=== PATIENT | female | born 1975 | race Caucasian/White ===

== ENCOUNTER 2021-03-06 10:03 | Emergency (ER) | payer OTHER, SELFPAY ==
[2021-03-06 10:20] VITALS: BP 152/78; PULSE 73; RESP 16; TEMP 36.6; O2SAT 100
--- NOTE | 2021-03-06 10:28 | ED.FEMALEGU ---
HPI - Female Genitourinary General Chief complaint: Urogenital-Female Stated complaint: pos uti Source: patient Mode of arrival: ambulatory Limitations: no limitations History of Present Illness HPI Narrative: Patient is a 45-year-old female who presents complaining of urinary frequency, urgency and pressure. She denies dysuria at this time. Patient reports a history of UTIs, last UTI 09/2020. She denies fever, nausea, vomiting or diarrhea. She denies all other complaints at this time. MD elicited complaint: UTI Related Data Allergies Allergy/AdvReac Type Severity Reaction Status Date / Time Sulfa (Sulfonamide Allergy Intermediate Rash Verified 10/07/20 09:43 Antibiotics) Review of Systems Review of Systems: Narrative: CONSTITUTIONAL: Denies fever, chills, or sweats. EYES: Denies visual changes, redness, or discharge. ENT: Denies rhinorrhea, congestion, sore throat, or otalgia. CARDIOVASCULAR: Denies chest pain, palpitations, or edema. RESPIRATORY: Denies cough or dyspnea. GASTROINTESTINAL: Denies abdominal pain, nausea, vomiting, or diarrhea. GENITOURINARY: Reports frequency, urgency and pressure SKIN: Denies rash or itching. MUSCULOSKELETAL: Denies back pain, joint pain, or myalgia. NEUROLOGIC: Denies headache, numbness, dizziness, or weakness. PSYCHIATRIC: Denies anxiety or depression. [facility] Past Medical History Medical History Anxiety and depression BMI 30.0-30.9,adult Migraine Overweight (BMI 25.0-29.9) Screening for lipid disorders Surgical History Surgical History History of hysterectomy Hx of tonsillectomy Family History Family History Father Diabetes mellitus Alcohol abuse Liver cirrhosis Mother Heart disease Diabetes mellitus Kidney failure Hypertension Sibling Diabetes mellitus Hypertension Alcohol abuse Other Breast cancer Social History Social History (Updated 03/06/21 @ 10:30 by POLY Hilton) Smoking status: Never smoker Alcohol intake: current Alcohol use details: Occasional Substance use: never Living arrangements: with family Occupation/Education: occupation Gender identity (if verbalized by the patient): Female Exam Narrative: Exam Narrative: GENERAL: Well-appearing, well-nourished, and in no acute distress. HEAD: Normocephalic, atraumatic. EYES: EOMI. No redness or drainage. Conjunctiva are normal. ENT: Mucous membranes pink and moist. CHEST: No respiratory distress. HEART: Regular rate and rhythm. GI/: Soft, nontender without rebound, or guarding. No CVA tenderness EXTREMITIES: Normal range of motion. No edema. SKIN: Warm, dry, no rash. NEURO: No focal deficits. Alert and oriented x3. Gait steady. PSYCH: Normal affect. No signs of depression or anxiety. Course Vital Signs Vital signs: Vital Signs Temperature 36.6 C 03/06/21 10:20 Pulse Rate 73 03/06/21 10:20 Respiratory Rate 16 03/06/21 10:20 Blood Pressure 152/78 H 03/06/21 10:20 Pulse Oximetry 100 03/06/21 10:20 Temperature 36.6 C 03/06/21 10:20 Pulse Rate 73 03/06/21 10:20 Respiratory Rate 16 03/06/21 10:20 Blood Pressure 152/78 H 03/06/21 10:20 Pulse Oximetry 100 03/06/21 10:20 Reviewed MDM - Female Genitourinary MDM Narrative Medical decision making narrative: Patient's urine displays nitrates, patient is symptomatic and will be treated for UTI at this time. Prescription for nitrofurantoin called in. Patient is stable for discharge home with outpatient follow-up as needed. Differential Diagnosis Differential diagnosis: Likely urinary tract infection, trichomoniasis, vaginitis and cystitis Medical Records Attestation: I reviewed the patient's medical records. Lab Data Labs: Urine Glucose Trace
== END 2021-03-06 10:32 | disposition home or self-care (01) ==
PROVIDERS: Emergency Provider Nurse Practitioner; PCP Family Medicine
DX: N39.0 Urinary tract infection, site not specified (principal); E66.3 Overweight; Z68.29 Body mass index [BMI] 29.0-29.9, adult
CPT/HCPCS: 81003; 87077; 87086; 87088; 87186; 99213; G0463

== ENCOUNTER 2021-11-08 14:52 | Emergency (ER) | payer OTHER, SELFPAY ==
--- NOTE | 2021-11-08 14:55 | ED.URI ---
HPI - URI/Sore Throat General Chief Complaint: Upper Respiratory Infection Stated Complaint: Upset stomach, fever, cough, sore throat Time Seen by Provider: 11/08/21 14:56 Source: patient and RN notes reviewed History of Present Illness HPI Narrative: Patient is a 46-year-old female who presents the urgent care with complaints of fever, cough, sore throat and nausea. Patient states her symptoms started last and she has had positive Covid exposures. Patient states she is been using Mucinex, Tylenol/ibuprofen. Patient has not been Covid vaccinated. Denies any shortness of breath or chest pain currently. No other acute complaints. No acute distress noted. Patient aware of the plan of care. Some parts of this dictation were generated by voice recognition software and may contain typographical and/or grammatical inaccuracies. Related Data Allergies Allergy/AdvReac Type Severity Reaction Status Date / Time Sulfa (Sulfonamide Allergy Intermediate Rash Verified 08/13/21 09:00 Antibiotics) Review of Systems Review of Systems: CONSTITUTIONAL: Reports of fever, chills, sweats EYES: Denies visual changes, redness, or discharge. ENT: Reports of sore throat, rhinorrhea and congestion CARDIOVASCULAR: Denies chest pain, palpitations, or edema. RESPIRATORY: Reports of cough without dyspnea GASTROINTESTINAL: Denies abdominal pain, nausea, vomiting, or diarrhea. GENITOURINARY: Denies dysuria or hematuria. SKIN: Denies rash or itching. MUSCULOSKELETAL: Denies back pain, joint pain, or myalgia. NEUROLOGIC: Denies headache, numbness, or weakness. All other systems reviewed are negative, except as documented in HPI. [facility] Past Medical History Medical History Anxiety and depression BMI 28.0-28.9,adult BMI 29.0-29.9,adult BMI 30.0-30.9,adult Migraine Overweight (BMI 25.0-29.9) Screening for lipid disorders Surgical History Surgical History History of hysterectomy Hx of tonsillectomy Family History Family History Father Diabetes mellitus Alcohol abuse Liver cirrhosis Mother Heart disease Diabetes mellitus Kidney failure Hypertension Sibling Diabetes mellitus Hypertension Alcohol abuse Other Breast cancer Social History Social History Second hand tobacco smoke exposure: Yes Alcohol intake: current Alcohol use details: Occasional Substance use: never Substance use type: does not use Additional occupation/education comments: [employer] Gender identity (if verbalized by the patient): Female Comments At the time of my signature, I reviewed and agree with the nursing past medical, surgical, social, and family history. There is no relevant family history pertinent to the patient complaint. Exam Narrative: GENERAL: This is a well-nourished, well-developed patient, in no apparent distress. Appears fatigued HEAD: normocephalic, atraumatic. EYES: PERRL. Sclera clear/white. Vision is grossly intact. EARS: External ears normal, auditory canals clear and without drainage, TMs normal without perforation. Hearing grossly intact. NOSE: External nose normal with no obvious nasal discharge, nares without redness, no rhinorrhea. THROAT: Mucous membranes moist. Moderate erythema to the posterior oropharynx with moderate postnasal drainage NECK: Neck supple, non-tender without lymphadenopathy CARDIOVASCULAR: Regular rate and rhythm without murmurs, gallops, or rubs. RESPIRATORY: Slight crackles to right lower lobe. Otherwise clear throughout SKIN: Slightly flushed. Warm, intact with no suspicious lesions or rash, good texture and turgor. NEURO: awake, alert, and oriented to person, place and time. There were no obvious focal neurologic abnormalities.
[2021-11-08 15:10] VITALS: BP 132/92; PULSE 105; RESP 16; TEMP 36.4; O2SAT 100
== END 2021-11-08 15:22 | disposition home or self-care (01) ==
PROVIDERS: Emergency Provider Nurse Practitioner Family; PCP Family Medicine
DX: U07.1 COVID-19 (principal)
CPT/HCPCS: 87426; 87804; 99213; C9803; G0463

== ENCOUNTER 2022-05-13 03:07 | Observation (INO) | payer OTHER, SELFPAY ==
[2022-05-13] VITALS (30 sets, daily range): BP systolic 100–152; BP diastolic 59–96; PULSE 87–143; RESP 13–29; TEMP 36–39.1; O2SAT 91–98; BMI 32.2
--- NOTE | 2022-05-13 | ECHO_ITS ---
Patient Info Name: Kathie Siddiqui Age: 46 years : 1975 Gender: Female Ht: 63 in Wt: 182 lbs BSA: 1.95 m2 HR: 88 bpm BP: 131 / 71 mmHg Technical Quality: Good Exam Date: 05/13/2022 1:10 PM Exam Location: [facility] Pulmonary Patient Status: Outpatient Admit Date: 05/13/2022 Staff Ordering Physician: Sammie Singer PA-C Applied Technologist: Mellissa Olvera RDCS Attending Provider: Sammie Singer PA-C Referring Physician: Enmanuel DALY; Exam Type: CA echo doppler color flow Study Info Indications - PE Complete two-dimensional, color flow and Doppler transthoracic echocardiogram is performed. Summary 1. Complete two-dimensional, color flow and Doppler transthoracic echocardiogram is performed. 2. Left ventricular chamber dimension is normal. 3. Left ventricular systolic function is normal, estimated at 60-65%. 4. The left ventricular diastolic function is normal. 5. E/e' 7 is not elevated. 6. Global longitudinal strain is normal at -17.0%. 7. No pulmonary hypertension, estimated pulmonary arterial systolic pressure is 25 mmHg. 8. There is trivial pericardial effusion. Left Ventricle E/e' 7 is not elevated. Global longitudinal strain is normal at -17.0%. Left ventricular chamber dimension is normal. Left ventricular systolic function is normal, estimated at 60-65%. The left ventricular diastolic function is normal. Right Ventricle Right ventricular systolic function is normal and with normal TAPSE 1.7 cm. Right ventricular chamber dimension is normal. Left Atria Left atrial chamber dimension is normal. Right Atria Right atrial chamber dimension is normal. Aortic Valve The aortic valve is trileaflet. There is no aortic valve stenosis. There is no aortic valve regurgitation. Pulmonic Valve There is trace pulmonic regurgitation. Mitral Valve There is no mitral valve stenosis. There is no mitral valve regurgitation. Tricuspid Valve There is no tricuspid valve regurgitation. No pulmonary hypertension, estimated pulmonary arterial systolic pressure is 25 mmHg. Pericardium/Pleural There is trivial pericardial effusion. Inferior Vena Cava Normal inferior vena cava with >50% collapse upon inspiration consistent with normal right atrial pressure, 5 mmHg. Aorta The aortic root size at the sinus of Valsalva is normal. Left Ventricular Outflow Tract Name Value Normal LVOT 2D LVOT Diameter 2.0 cm LVOT Doppler LVOT Peak Gradient 5 mmHg LVOT Mean Gradient 3 mmHg LVOT VTI 19 cm LVOT VTI/AV VTI Ratio 0.8 LVOT Stroke Volume 59 ml LVOT CO 5.3 l/min LVOT CI 2.7 l/min/m2 Pulmonic Valve Name Value Normal RVOT Doppler
--- NOTE | ~2022-05-13 | CT_ITS ---
EXAMINATION: CT chest abdomen pelvis wo con DATE: 05/13/2022 17:44 INDICATION: Upper extremity blood pressure discrepancy TECHNIQUE: Computed tomography (CT) of the chest, abdomen, and pelvis was performed without intraveno us contrast. Automated exposure control and iterative reconstruction technique were employed. Exam do se: 685.44 mGy-cm total exam DLP. COMPARISON: 05/13/2022 CTA chest 03/01/2019 CT abdomen pelvis FINDINGS: CHEST CT: The lungs are clear of infiltrate or consolidation or mass lesion. Normal heart size. No pericardial or pleural effusion. No thoracic aortic aneurysm. No hilar or mediastinal mass lesion or lymphadenopathy. ABDOMEN/PELVIS CT: The liver, spleen, pancreas, adrenal glands are unremarkable on this limited noncontrast examination. The gallbladder is present. No pericholecystic fat stranding or fluid. No bile duct or pancreatic du ct dilatation. No renal mass lesion is evident. Approximately 3.4 x 5 mm nonobstructing right renal calculus. No oth er urinary tract calculus or hydroureteronephrosis. The urinary bladder is relatively evacuated, unremarkable. Status post hysterectomy. Normal caliber of the abdominal aorta. No intraperitoneal or retroperitoneal or pelvic mass lesion or adenopathy or ascites. Minimal diverticulosis of the descending colon. No CT evidence of diverticulitis. No bowel dilatation or any significant bowel wall thickening or any pneumatosis or intraperitoneal free air is noted. Small fat-containing umbilical hernia. There is mild subcutaneous emphysema of the left lower anterio r abdominal wall likely related to subcutaneous injection. No suspicious osteolytic or osteoblastic lesions are noted. IMPRESSION: C5 millimeter nonobstructing right renal calculus Status post hysterectomy Minimal diverticulosis of the descending colon Reviewed, dictated and finalized at [facility]. Reviewed, dictated and finalized at location [facility].
--- NOTE | ~2022-05-13 | XR_ITS ---
EXAMINATION: XR chest 1V portable INDICATION: Shortness of breath and COVID 19 TECHNIQUE: Portable AP chest at 0339 hours COMPARISON: 08/07/2016 FINDINGS: The lungs are free of acute opacities. No pleural effusion or pneumothorax. The cardiomedia stinal silhouette is normal. The visualized bones and soft tissues are unremarkable. IMPRESSION: 1. No acute cardiopulmonary abnormality. Reviewed, dictated and finalized at location [facility].
--- NOTE | ~2022-05-13 | CT_ITS ---
EXAMINATION: CT BRAIN W/O DATE: 05/13/2022 07:46 INDICATION: Headache TECHNIQUE: Computed tomography (CT) of the head was performed without intravenous contrast. The dose- length product was 605.33 mGy-cm. Automated exposure control and iterative reconstruction technique w ere employed. COMPARISON: No prior studies for comparison. FINDINGS: Normal brain parenchymal volume for age. Normal marshall-white differentiation. No acute intrac ranial hemorrhage, infarction, mass or mass effect. No ventriculomegaly or midline shift. Midline sagittal images demonstrate a normal corpus callosum, c raniovertebral junction and sella turcica. Basilar cisterns are patent. Paranasal sinuses and mastoids are pneumatized. No depressed skull fractures. IMPRESSION: 1. No acute intracranial abnormality. Reviewed, dictated and finalized at location L.
--- NOTE | ~2022-05-13 | US_ITS ---
EXAMINATION:US venous doppler LE BI INDICATION:Elevated d-dimer TECHNIQUE: Multiple grayscale, color flow and Doppler images of the right and left lower extremity de ep venous systems were obtained and reviewed. COMPARISON:No prior studies for comparison. FINDINGS: The common femoral, superficial femoral and popliteal veins demonstrate normal respiratory variation, augmentation and compressibility. Color flow is also seen within the posterior tibial, pe roneal, greater saphenous and profunda veins. IMPRESSION: 1: No lower extremity deep venous thrombosis. Reviewed, dictated and finalized at location A.
--- NOTE | ~2022-05-13 | CT_ITS ---
EXAMINATION: CTA chest PE protocol DATE: 05/13/2022 05:26 INDICATION: Shortness of breath and COVID TECHNIQUE: Computed tomography (CT) pulmonary angiogram of the chest was performed with 100 mL Omnipa que-350 intravenous contrast. Additional 3D reconstructions utilizing coronal maximum intensity proje ction (MIP) were performed. Automated exposure control and iterative reconstruction technique were em ployed. The dose-length product was 241.76 mGy-cm. COMPARISON: 08/07/2016 FINDINGS: Good but suboptimal contrast opacification of the pulmonary arteries with the peak of the bolus havin g passed into the aorta. In addition there is mild streak and scattered respiratory motion artifact. This mildly mildly decreases sensitivity and specificity particularly in some of the smaller subsegme ntal pulmonary arteries. There appears be a single small pulmonary arterial filling defect in the pos terior basilar segmental pulmonary artery of the left lower lobe. No other pulmonary emboli identifie d. No pneumonia, pulmonary edema, pleural effusion or pneumothorax. Heart size is normal. No pericard ial effusion. No pathologically enlarged thoracic lymphadenopathy. Visualized upper abdomen and bones are unremarkable. IMPRESSION: 1. Single likely pulmonary embolism in the posterior basilar segmental pulmonary artery of the left l ower lobe with sensitivity and specificity mildly decreased by suboptimal contrast opacification and some streak and motion artifact. Reviewed, dictated and finalized at location A. IMPRESSION: 1. Single likely pulmonary embolism in the posterior basilar segmental pulmonar y artery of the left lower lobe with sensitivity and specificity mildly decreas ed by suboptimal contrast opacification and some streak and motion artifact.
--- NOTE | 2022-05-13 03:34 | ECG_ITS ---
Measurements Intervals [place] Rate: 113 P: 41 NM: 146 QRS: 40 QRSD: 85 T: 66 QT: 343 QTc: 472 Interpretive Statements SINUS TACHYCARDIA NONSPECIFIC ST & T-WAVE ABNORMALITY- DIFFUSE LEADS BASELINE WANDER- III, V2 ABNORMAL ECG Electronically Signed On 05-13-2022 6:36:39 CDT by Mendez Freeman D.O.
[2022-05-13 03:56] LABS: Basophils Percent Auto 0.2 % (0.2-1.2); Hematocrit 42.2 % (37.0-47.0); Immature Granulocyte Absolute 0.05 K/mm3 (0.00-0.031); Immature Granulocyte Percent A 0.5 % (0-0.5); Lymphocytes Absolute Auto 0.92 K/mm3 (0.9-3.2); Lymphocytes Percent Auto 9.7 % (18.3-44.2); Mean Corpuscular HGB Conc 33.2 g/dl (32-36); Mean Corpuscular Volume 90.6 fl (80-100); Mean Platelet Volume 8.7 fl (7.4-10.4); Monocytes Absolute Auto 0.6 K/mm3 (0.1-0.6); Monocytes Percent Auto 5.9 % (2.6-8.5); Neutrophils Absolute Auto 7.9 K/mm3 (1.3-6.7); Neutrophils Percent Auto 83.7 % (45.5-73.1); Platelet Count Result 253 k/mm3 (150-375); Red Blood Count 4.66 M/mm3 (4.2-5.4); Red Cell Distribution Width 13.1 % (11.5-14.5); White Blood Count 9.4 K/mm3 (4.5-10.0)
[2022-05-13 04:06] LABS: Alanine Aminotransferase 32 U/L (6-35); Albumin Level 4.6 g/dL (3.5-5.1); Alkaline Phosphatase 101 U/L (38-126); Anion Gap 10 mmol/L (8-16); Aspartate Amino Transferase 29 U/L (14-36); Bilirubin,Total 0.6 mg/dL (0.2-1.3); Blood Urea Nitrogen 14 mg/dL (7-17); Calcium 9.1 mg/dL (8.4-10.2); Carbon Dioxide 21 mmol/L (22-30); Chloride 103 mmol/L (98-107); Estimated CRCL calculation 85 ml/min; Estimated Glomerular Filt Rate > 60; Glucose 161 mg/dL (65-110); Lactate Dehydrogenase 437 U/L (313-618); Lipase 36 U/L (23-300); Potassium 3.8 mmol/L (3.4-5.0); Sodium 134 mmol/L (137-145)
[2022-05-13 04:10] LABS: D Dimer 0.71 ug/mL (<0.48)
--- NOTE | 2022-05-13 04:10 | ED.GENADULT ---
HPI - General Adult General Chief complaint: Upper Respiratory Infection Stated complaint: covid + yesterday, n/v, headache Time Seen by Provider: 05/13/22 03:27 Source: RN notes reviewed History of Present Illness HPI narrative: Patient presents emergency department from home for COVID-19. Patient states that symptoms began yesterday and she took a home COVID test that was positive states that she has been having a fever as well as persistent nausea and vomiting all day today. States she also has been associated headache and rhinorrhea she states she has been having a cough this been nonproductive does feel mildly short of breath she denies any chest pain diarrhea or any other symptoms states she is not taking medication today she has not been able to keep anything down patient states she did not receive the COVID-19 vaccination Related Data Allergies Allergy/AdvReac Type Severity Reaction Status Date / Time Sulfa (Sulfonamide Allergy Intermediate Rash Verified 05/13/22 10:44 Antibiotics) Review of Systems Review of Systems: Gen.: Reports fever Eyes: Denies eye pain or visual change ENT: Reports nasal congestion Respiratory: See HPI CV: Denies chest pain or palpitations GI: Reports diffuse abdominal pain nausea vomiting denies diarrhea Musculoskeletal: Denies back pain or muscle pain Neuro: Reports headache Skin: Denies rash Except as documented, all other systems reviewed and negative [facility] Past Medical History Medical History (Updated 05/13/22 @ 09:34 by Sammie Singer PA-C) Anxiety and depression Kidney stone Migraine Screening for lipid disorders Surgical History Surgical History (Updated 05/13/22 @ 09:34 by Sammie Singer PA-C) History of exploratory laparotomy Fallopian tube blood clot History of hysterectomy Hx of tonsillectomy Family History Family History Father Diabetes mellitus Alcohol abuse Liver cirrhosis Mother Heart disease Diabetes mellitus Kidney failure Hypertension Sarcoidosis Sibling Diabetes mellitus Hypertension Alcohol abuse Other Breast cancer Social History Social History (Updated 05/13/22 @ 09:44 by Sammie Singer PA-C) Social History: Ms. Siddiqui lives at home with her . She works at [employer]. Her PCP is Dr. Bernard. She designates her , Marcin, as her surrogate decision maker. She would like to be a DNR. Smoking status: Never smoker Alcohol intake: never Alcohol use details: 2 drinks/month Substance use: never Substance use type: does not use Living arrangements: with family Gender identity (if verbalized by the patient): Female Spiritual care concerns: No Exam Narrative: APPEARANCE: No acute distress, nontoxic, resting in bed EYES: EOMI HEENT: Normocephalic, atraumatic, OMM RESPIRATORY: No respiratory distress Clear to auscultation bilaterally with no rhonchi wheezing or rales. CARDIOVASCULAR: Regular rate and rhythm without murmurs rubs or gallops. ABDOMINAL: Soft, nontender, nondistended, no rebound or guarding MUSCULOSKELETAl: Moves all extremities. No clubbing, cyanosis or edema. NEURO: Awake and alert. Following commands, speech normal, no focal deficits SKIN:: Warm, dry. No rashes lesions or abrasions PSYCHIATRIC: Normal affect/mood, Course Course Emergency Course: Discussed with patient results of CT scan states she does have a history of approximate 25 years ago having a blood clot following the of her son Discussed with Dr Martin presentation work-up agrees with admission at this time request influenza swab be obtained Discussed with patient and family results of workup and diagnosis. Discussed need for admission. Patient and family understand and agree to current treatment plan Vital Signs Vital signs: Vital Signs Temperature 100.4 F H 05/13/22 03:11 Pulse Rate 143 H 05/13/22 03:11 Respiratory Rate 20 0
[2022-05-13 04:18] LABS: Troponin I < 0.012 ng/mL (0.000-0.034)
[2022-05-13] MEDS: ONDANSETRON INJ 4 MG/2 ML VIAL IV PUSH ×3 (04:26→21:57)
[2022-05-13] MEDS: FAMOTIDINE 20 MG/2 ML VIAL IV PUSH (04:27)
[2022-05-13] MEDS: SODIUM CHLORIDE 0.9% IV 1,000 ML 999 ML IV CONT ×2 (04:31→06:25)
[2022-05-13 06:03] LABS: SARS-CoV-2 RNA PCR Positive
[2022-05-13 07:45] LABS: INR 1.2; Partial Thromboplastin Time 32.3 SECONDS (22.3-36.8)
[2022-05-13 08:03] LABS: Appearance Urine Clear (Clear); Bilirubin Urine Negative (Negative); Color Urine Yellow (Yellow); Glucose Urine UA Negative (Negative); Ketones Urine Negative (Negative); Leukocyte Esterase Ur Negative LEU/UL (Negative); Nitrate Urine Negative (Negative); Protein Urine Negative (Negative); Urobilinogen Urine 0.2 mg/dL (<2.0)
[2022-05-13] MEDS: ENOXAPARIN 80 MG/0.8 ML SYRINGE 79 MG SUB-Q (08:04)
[2022-05-13 08:12] LABS: Squamous Epithelial Cell Urine Rare /hpf (Few); WBC Urine 0-3 /hpf
[2022-05-13 08:16] LABS: Add Urine Microscopic? YES; Blood Urine Trace-Intact (Negative)
--- NOTE | 2022-05-13 09:02 | PM.IMHP ---
H&P: HPI History of Present Illness Date/Time: 05/13/22 09:02 Chief Complaint: Headache, nausea, vomiting Narrative: Date of service: 05/13/2022 Kathie Siddiqui is a 46-year-old female with a history of anxiety, depression, migraines, and questionable history of pelvic/fallopian tube blood clot for which she was treated with warfarin over 20 years ago who presented to the emergency department on 05/13/22 with several complaints. She states she was feeling well until yesterday when she developed a migraine, itchy throat, severely runny nose, fever and chills. Early this morning around 2:30 am she began vomiting and her head was pounding and she felt she needed to seek emergency care. In the ED, she was noted to be febrile up to 102.3?, she was tachypneic and tachycardic, D-dimer was elevated and she tested positive for COVID-19. CTA of the chest showed a single likely pulmonary embolism in the posterior basilar segmental pulmonary artery of the left lower lobe. Head CT was unremarkable and CXR showed no acute cardiopulmonary abnormality. The patient states that she recently traveled to [place] by airplane and returned home a few days ago. She did have contact with a sick co-worker, however reports echo worker tested negative for COVID. Denies any additional sick contacts. At the time of my evaluation, she is starting to feel a bit better. She continues to complain of headache which she currently rates as 8/10 in the frontoparietal region. She has not had any additional episodes of vomiting, but does endorse abdominal discomfort secondary to retching. She denies shortness of breath, pleuritic chest pain, or hemoptysis. She is being admitted to the hospitalist service for observation. Supervising physician for this history and physical is Dr. Ousmane Costa. Review of Systems Review of Systems: All systems reviewed with pertinent positives and negatives as per HPI. Patient endorses itchy, sore throat and clear rhinorrhea. She endorses intermittent, nonproductive cough. Denies diarrhea. She denies dizziness or lightheadedness but does endorse feeling somewhat weak since becoming ill. She did not receive a COVID vaccine or flu vaccine. She had COVID pneumonia in November 2021. [facility] Past Medical History Medical History (Updated 05/13/22 @ 09:34 by Sammie Singer PA-C) Anxiety and depression Kidney stone Migraine Screening for lipid disorders Surgical History Surgical History (Updated 05/13/22 @ 09:34 by Sammie Singer PA-C) History of exploratory laparotomy Fallopian tube blood clot History of hysterectomy Hx of tonsillectomy Family History Family History (Updated 05/13/22 @ 09:42 by Sammie Singer PA-C) Father Diabetes mellitus Alcohol abuse Liver cirrhosis Mother Heart disease Diabetes mellitus Kidney failure Hypertension Sarcoidosis Sibling Diabetes mellitus Hypertension Alcohol abuse Other Breast cancer Social History Social History (Updated 05/13/22 @ 09:44 by Sammie Singer PA-C) Social History: Ms. Siddiqui lives at home with her . She works at [employer]. Her PCP is Dr. Bernard. She designates her , Marcin, as her surrogate decision maker. She would like to be a DNR. Smoking status: Never smoker Alcohol intake: current Alcohol use details: 2 drinks/month Substance use: never Substance use type: does not use Living arrangements: with family Gender identity (if verbalized by the patient): Female Meds Home Medications and Allergies Home Medications Medication Instructions Recorded Confirmed Type albuterol sulfate 90 mcg/actuation 2 puff inhalation QID PRN 11/08/21 Rx aerosol inhaler shortness of breath or wheezing #8 grams hydroxyzine HCl 10 mg tablet 10 mg PO TID PRN anxiety #30 tabs 02/07/22 Rx Allergies Allergy/AdvReac Type Severity Reaction Status Date / Time Sulfa (Sulfonamide Allergy Intermediate
--- NOTE | 2022-05-13 10:50 | ADMGEN ---
This patient, Kathie Siddiqui, was admitted to 2 Medical Room 242-. Patient/family oriented to hospital policies and general routines including ID bracelet, bed and alarms, visiting hours, pain management, procedures, bathroom and other care routines, personal items, smoking policy, room service/diet, and visiting hours. Information on how to activate the Rapid Response Team has been discussed. Patient/Family are encouraged to report perceived risks to care and to ask questions if they do not understand what they are told or what they should do. Report received from SANDRA Gentile
[2022-05-13 11:04] LABS: Influenza A QL RT-PCR Negative (Negative); Influenza B QL RT-PCR Negative (Negative)
[2022-05-13] MEDS: ACETAMINOPHEN/ASPIRIN/CAFFEINE 250-250-65 MG TABLET 1 TABLET PO (11:04)
[2022-05-13 11:10] LABS: NT Pro B Type Natriuretic Pept 66 pg/mL (5-100)
[2022-05-13] MEDS: ACETAMINOPHEN 325 MG TABLET 650 MG PO ×2 (16:31→21:57)
[2022-05-13] MEDS: FLUTICASONE PROPIONATE 0.05% NA SPR 16 GM BTL (*BKC) 1 SPRAY NASAL (21:54)
[2022-05-13] MEDS: APIXABAN 5 MG TABLET 10 MG PO (21:54)
[2022-05-13] MEDS: BENZOCAINE/MENTHOL (*BKC) 18 EA LOZENGE 1 LOZENGE PO (22:46)
[2022-05-13] MEDS: TEMAZEPAM (*CRX) 15 MG CAPSULE PO (22:46)
[2022-05-13] MEDS: guaiFENesin 12 HR 600 MG TABCR PO (22:47)
[2022-05-14] MEDS: ACETAMINOPHEN 325 MG TABLET 650 MG PO ×2 (02:08→08:59)
[2022-05-14 04:28] VITALS: BP 109/67; PULSE 81; RESP 20; TEMP 36.4; O2SAT 93
[2022-05-14] MEDS: BENZOCAINE/MENTHOL (*BKC) 18 EA LOZENGE 1 LOZENGE PO ×3 (05:26→13:15)
[2022-05-14] MEDS: ACETAMINOPHEN/ASPIRIN/CAFFEINE 250-250-65 MG TABLET 1 TABLET PO (05:28)
[2022-05-14 06:11] LABS: Basophils Percent Auto 0.3 % (0.2-1.2); Hematocrit 39.1 % (37.0-47.0); Hemoglobin 12.8 g/dL (12.0-15.0); Immature Granulocyte Absolute 0.04 K/mm3 (0.00-0.031); Immature Granulocyte Percent A 0.5 % (0-0.5); Lymphocytes Absolute Auto 2.37 K/mm3 (0.9-3.2); Mean Corpuscular HGB Conc 32.7 g/dl (32-36); Mean Corpuscular Hemoglobin 30.5 pg (26-34); Mean Corpuscular Volume 93.1 fl (80-100); Monocytes Absolute Auto 0.9 K/mm3 (0.1-0.6); Monocytes Percent Auto 9.9 % (2.6-8.5); Neutrophils Absolute Auto 5.5 K/mm3 (1.3-6.7); Neutrophils Percent Auto 62.3 % (45.5-73.1); Platelet Count Result 196 k/mm3 (150-375); Red Cell Distribution Width 13.3 % (11.5-14.5); White Blood Count 8.8 K/mm3 (4.5-10.0)
[2022-05-14 06:23] LABS: Alanine Aminotransferase 17 U/L (6-35); Albumin Level 4.1 g/dL (3.5-5.1); Alkaline Phosphatase 85 U/L (38-126); Anion Gap 4 mmol/L (8-16); Aspartate Amino Transferase 21 U/L (14-36); Bilirubin,Total 0.5 mg/dL (0.2-1.3); Blood Urea Nitrogen 7 mg/dL (7-17); Calcium 8.5 mg/dL (8.4-10.2); Carbon Dioxide 30 mmol/L (22-30); Chloride 105 mmol/L (98-107); Estimated CRCL calculation 77 ml/min; Estimated Glomerular Filt Rate > 60; Glucose 103 mg/dL (65-110); Potassium 3.7 mmol/L (3.4-5.0); Sodium 139 mmol/L (137-145)
[2022-05-14 07:52] LABS: Glucose Point of Care 115 mg/dl (65-105)
[2022-05-14] MEDS: FLUTICASONE PROPIONATE 0.05% NA SPR 16 GM BTL (*BKC) 1 SPRAY NASAL (08:59)
[2022-05-14] MEDS: APIXABAN 5 MG TABLET 10 MG PO (08:59)
[2022-05-14] MEDS: guaiFENesin 12 HR 600 MG TABCR PO (08:59)
[2022-05-14 11:53] VITALS: BP 138/92
[2022-05-14] MEDS: traMADol HCL (*CRX) 50 MG TABLET PO (13:10)
--- NOTE | 2022-05-14 13:14 | P.DS_ITS ---
DS: Admitting Diagnosis Discharge Date 05/14/2022 Admitting Diagnosis Pulmonary embolism DS: Discharge Diagnosis Discharge Diagnosis (1) Pulmonary embolism: Code(s): I26.99 - Other pulmonary embolism without acute cor pulmonale Status: Acute Assessment and Plan: D-dimer slightly elevated on presentation. CTA showed a single pulmonary embolism in the posterior basilar segmental pulmonary artery of the left lower lobe * Suspect secondary to COVID-19 * Venous Doppler negative * Troponin negative * BNP within normal limits * Echocardiogram showed normal EF, trivial pericardial effusion, no evidence of heart strain * Patient was not hypoxic, did not require supplemental oxygen * Received 1 dose of therapeutic Lovenox on presentation * Transitioned to Eliquis which will be continued for at least 3 months * Eliquis 10 mg q12h x7 days then 5 mg q12h thereafter (2) Sepsis: Code(s): A41.9 - Sepsis, unspecified organism Status: Resolved Assessment and Plan: Resolved. Septic on presentation with fever (Tmax 102.9), tachycardia, tachypnea * Likely secondary to acute viral illness. No additional signs/symptoms to suggest secondary source of infection * Blood cultures negative to date, final cultures will be monitored * Influenza negative * Fever, tachypnea, tachycardia resolved (3) COVID-19: Code(s): U07.1 - COVID-19 Status: Acute Assessment and Plan: Positive PCR on 05/13/22 * Maintained adequate oxygen saturations on room air. * No need for COVID-19 specific therapy as patient had no oxygen requirement * Supportive care provided including bronchodilators, expectorants, antipyret ics, incentive spirometry * Patient did not receive COVID-19 vaccine. Educated patient that she is eligible for vaccine 90 days following acute infection (4) Nausea and vomiting: Code(s): R11.2 - Nausea with vomiting, unspecified Status: Acute Assessment and Plan: Likely secondary to acute viral illness * She was adequately rehydrated * Able to tolerate her diet * Antiemetics as needed. Hold hydroxyzine while taking Zofran (5) Migraine: Qualifiers: Intractability: not intractable Migraine type: with aura Status migrainosus presence: without status migrainosus Qualified Code(s): G43.109 - Migraine with aura, not intractable, without status migrainosus Code(s): G43.909 - Migraine, unspecified, not intractable, without status migrainosus Status: Acute Assessment and Plan: Patient with history of migraines. Migraine onset 05/12, likely exacerbated due to acute viral illness * Reports seeing bright lights in her vision with frontoparietal pain * Supportive care. Quiet dark room * Continue Excedrin. Recommended to transition to ?Excedrin tension headache? variation which does not contain aspirin due to concurrent Eliquis use. (6) Tingling of both upper extremities: Code(s): R20.2 - Paresthesia of skin Status: Acute Assessment and Plan: On 05/13, patient had brief episode where she felt her bilateral hands appeared discolored/white-abhi in color and both hands became tingly like they fell asleep. She states this episode lasted about 10 minutes. She was evaluated by my supervising physician and at that time physical exam was unremarkable. No further episodes. Patient denies any similar episodes in the past Upper extremity Doppler evaluated at time of episode with normal pulses. She was found to have a discrepancy in blood pressures taken from the left and the r
--- NOTE | 2022-05-14 13:14 | PM.DS ---
DS: Admitting Diagnosis Discharge Date 05/14/2022 Admitting Diagnosis Pulmonary embolism DS: Discharge Diagnosis Discharge Diagnosis (1) Pulmonary embolism: Code(s): I26.99 - Other pulmonary embolism without acute cor pulmonale Status: Acute Assessment and Plan: D-dimer slightly elevated on presentation. CTA showed a single pulmonary embolism in the posterior basilar segmental pulmonary artery of the left lower lobe Suspect secondary to COVID-19 Venous Doppler negative Troponin negative BNP within normal limits Echocardiogram showed normal EF, trivial pericardial effusion, no evidence of heart strain Patient was not hypoxic, did not require supplemental oxygen Received 1 dose of therapeutic Lovenox on presentation Transitioned to Eliquis which will be continued for at least 3 months Eliquis 10 mg q12h x7 days then 5 mg q12h thereafter (2) Sepsis: Code(s): A41.9 - Sepsis, unspecified organism Status: Resolved Assessment and Plan: Resolved. Septic on presentation with fever (Tmax 102.9), tachycardia, tachypnea Likely secondary to acute viral illness. No additional signs/symptoms to suggest secondary source of infection Blood cultures negative to date, final cultures will be monitored Influenza negative Fever, tachypnea, tachycardia resolved (3) COVID-19: Code(s): U07.1 - COVID-19 Status: Acute Assessment and Plan: Positive PCR on 05/13/22 Maintained adequate oxygen saturations on room air. No need for COVID-19 specific therapy as patient had no oxygen requirement Supportive care provided including bronchodilators, expectorants, antipyretics, incentive spirometry Patient did not receive COVID-19 vaccine. Educated patient that she is eligible for vaccine 90 days following acute infection (4) Nausea and vomiting: Code(s): R11.2 - Nausea with vomiting, unspecified Status: Acute Assessment and Plan: Likely secondary to acute viral illness She was adequately rehydrated Able to tolerate her diet Antiemetics as needed. Hold hydroxyzine while taking Zofran (5) Migraine: Qualifiers: Intractability: not intractable Migraine type: with aura Status migrainosus presence: without status migrainosus Qualified Code(s): G43.109 - Migraine with aura, not intractable, without status migrainosus Code(s): G43.909 - Migraine, unspecified, not intractable, without status migrainosus Status: Acute Assessment and Plan: Patient with history of migraines. Migraine onset 05/12, likely exacerbated due to acute viral illness Reports seeing bright lights in her vision with frontoparietal pain Supportive care. Quiet dark room Continue Excedrin. Recommended to transition to ?Excedrin tension headache? variation which does not contain aspirin due to concurrent Eliquis use. (6) Tingling of both upper extremities: Code(s): R20.2 - Paresthesia of skin Status: Acute Assessment and Plan: On 05/13, patient had brief episode where she felt her bilateral hands appeared discolored/white-abhi in color and both hands became tingly like they fell asleep. She states this episode lasted about 10 minutes. She was evaluated by my supervising physician and at that time physical exam was unremarkable. No further episodes. Patient denies any similar episodes in the past Upper extremity Doppler evaluated at time of episode with normal pulses. She was found to have a discrepancy in blood pressures taken from the left and the right arm. CT of the chest/abdomen/pelvis ordered for evaluation which did not show any aortic abnormalities and the echocardiogram was unremarkable. On repeat BP evaluation on 05/14, there was no significant discrepancy in BP readings. I suspect that the blood pressure discrepancy was related to the fact that this episode was anxiety provoking and her blood pressure increased upon being retaken. Dis
[2022-05-14 14:00] VITALS: BP 136/88; PULSE 82; RESP 20; TEMP 36.4; O2SAT 94
[2022-05-14] MEDS: ONDANSETRON INJ 4 MG/2 ML VIAL IV PUSH (14:28)
== END 2022-05-14 15:25 | disposition home or self-care (01) ==
LOC: ANHED 10:08 → ANH2MED 10:08
PROVIDERS: Admitting Provider Family Medicine; Emergency Provider Emergency Medicine; PCP Family Medicine; Visit Provider Physician Assistant
DX: A41.9 Sepsis, unspecified organism (principal); U07.1 COVID-19; I26.99 Other pulmonary embolism without acute cor pulmonale; R11.2 Nausea with vomiting, unspecified; G43.109 Migraine with aura, not intractable, without status migrainosus; R20.2 Paresthesia of skin; F41.9 Anxiety disorder, unspecified; F32.A Depression, unspecified; N20.0 Calculus of kidney; R94.31 Abnormal electrocardiogram [ECG] [EKG]; Z90.710 Acquired absence of both cervix and uterus
CPT/HCPCS: 36415; 70450; 71045; 71250; 71275; 74176; 80053; 81001; 82948; 83615; 83690; 83880; 84484; 85025; 85380; 85610; 85730; 87040; 87502; 87804; 93005; 93306; 93970; 96361; 96365; 96372; 96374; 96375; 96376; 99285; A9270; C9803; G0378; J0131; J1650; J2405; J7030; Q9967; U0003; U0005

== ENCOUNTER 2022-05-19 13:41 | Emergency (ER) | payer OTHER, SELFPAY ==
--- NOTE | ~2022-05-19 | XR_ITS ---
XR chest 2V DATE: 05/19/2022 14:10 INDICATION: Shortness of breath TECHNIQUE: 2 views COMPARISON: 05/13/2022 CT chest 05/13/2022 CT pulmonary scan 05/13/2022 portable AP chest FINDINGS: Normal heart size. No pulmonary infiltrate or consolidation, pleural effusion or pulmonary mass congestion or pneumothorax. Included skeletal structures are unremarkable. IMPRESSION: No active cardiopulmonary disease Reviewed, dictated and finalized at location A.
--- NOTE | ~2022-05-19 | CT_ITS ---
EXAMINATION: CTA chest PE protocol DATE: 05/19/2022 16:54 CDT INDICATION: History of pulmonary embolism. Recurrent chest pain. Covid positive. TECHNIQUE: Computed tomographic angiography (CTA) of the chest was performed with 100 mL Omnipaque-35 0 intravenous contrast. The dose-length product was 330.38 mGy-cm. Maximum intensity projection 3D-re constructions of the aorta and other arteries were constructed by the technologist on a separate work station. Automated exposure control and iterative reconstruction technique were employed. COMPARISON: CT dated 05/13/2022. FINDINGS: Study is technically adequate without evidence for pulmonary embolism. Heart size is normal . No significant pleural or pericardial effusion. Upper abdomen is unremarkable. No endobronchial les ions. No suspicious pulmonary nodules or masses. No pneumothorax. No acute osseous abnormality. No fo devin lytic or blastic lesions. No evidence for aortic aneurysm or dissection. IMPRESSION: 1. No evidence for pulmonary embolism. No acute cardiopulmonary disease. Reviewed, dictated and finalized at location A.
[2022-05-19 13:43] VITALS: BP 161/87; PULSE 83; RESP 16; TEMP 37.1; O2SAT 100
--- NOTE | 2022-05-19 13:48 | ECG_ITS ---
Measurements Intervals [place] Rate: 87 P: 52 MA: 143 QRS: 20 QRSD: 85 T: 41 QT: 376 QTc: 453 Interpretive Statements SINUS RHYTHM WITH SINUS ARRHYTHMIA BORDERLINE ST-T WAVE ABNORMALITY- ANT/INF LEADS BASELINE WANDER- II, III, AVL, AVF, V3 BORDERLINE ECG Electronically Signed On 05-19-2022 14:48:43 CDT by Mendez Freeman D.O.
[2022-05-19 14:01] LABS: Hematocrit 45.3 % (37.0-47.0); Hemoglobin 14.7 g/dL (12.0-15.0); Mean Corpuscular HGB Conc 32.5 g/dl (32-36); Mean Corpuscular Hemoglobin 29.9 pg (26-34); Mean Corpuscular Volume 92.1 fl (80-100); Mean Platelet Volume 8.3 fl (7.4-10.4); Platelet Count Result 388 k/mm3 (150-375); Red Blood Count 4.92 M/mm3 (4.2-5.4); White Blood Count 14.5 K/mm3 (4.5-10.0)
[2022-05-19 14:14] LABS: Alanine Aminotransferase 18 U/L (6-35); Alkaline Phosphatase 113 U/L (38-126); Anion Gap 9 mmol/L (8-16); Aspartate Amino Transferase 20 U/L (14-36); Bilirubin,Total 0.6 mg/dL (0.2-1.3); Blood Urea Nitrogen 14 mg/dL (7-17); Calcium 9.8 mg/dL (8.4-10.2); Carbon Dioxide 29 mmol/L (22-30); Chloride 100 mmol/L (98-107); Estimated CRCL calculation 76 ml/min; Estimated Glomerular Filt Rate > 60; Glucose 130 mg/dL (65-110); Potassium 4.1 mmol/L (3.4-5.0); Sodium 138 mmol/L (137-145)
--- NOTE | 2022-05-19 14:38 | ED.SOB ---
HPI - SOB/Dyspnea General Chief Complaint: Shortness of Breath/Dyspnea Stated Complaint: COVID positive on 05/12 - SOB and cough Time Seen by Provider: 05/19/22 14:37 History of Present Illness HPI Narrative: The patient is a 46-year-old female with a history of anxiety, depression, migraines, with recent COVID-positive admission, noted to have a single pulmonary embolism found on imaging and initiated on Eliquis. Patient returns for numerous complaints including shortness of breath, dry cough, frontal chest pain, subjective fever, chills, nausea and vomiting. Patient states that she continues to feel significantly ill since discharge from the hospital. She has managed to be compliant with her medications but reports chest pain on her right chest that radiates to the right shoulder that has been present for the past 4 days. Patient has been trying numerous medications at home including nebulizer treatment, Zofran, Mucinex, nasal spray. Patient is not vaccinated for COVID. Related Data Allergies Allergy/AdvReac Type Severity Reaction Status Date / Time Sulfa (Sulfonamide Allergy Intermediate Rash Verified 05/13/22 10:44 Antibiotics) Review of Systems Review of Systems: CONSTITUTIONAL: Subjective fever and chills ENT: Reports rhinorrhea and congestion CARDIOVASCULAR: Reports chest pain and palpitations RESPIRATORY: Reports cough and shortness of breath GASTROINTESTINAL: Denies abdominal pain, reports nausea and vomiting GENITOURINARY: Denies dysuria or hematuria. SKIN: Denies rash or itching. MUSCULOSKELETAL: Denies back pain, joint pain, reports myalgias NEUROLOGIC: Reports headache without numbness, reports feeling diffusely weak PMFSH Past Medical History Medical History Anxiety and depression Kidney stone Migraine Screening for lipid disorders Surgical History Surgical History History of exploratory laparotomy Fallopian tube blood clot History of hysterectomy Hx of tonsillectomy Family History Family History Father Diabetes mellitus Alcohol abuse Liver cirrhosis Mother Heart disease Diabetes mellitus Kidney failure Hypertension Sarcoidosis Sibling Diabetes mellitus Hypertension Alcohol abuse Other Breast cancer Social History Social History Social History: Ms. Siddiqui lives at home with her . She works at [employer]. Her PCP is Dr. Bernard. She designates her , Marcin, as her surrogate decision maker. She would like to be a DNR. Smoking status: Never smoker Alcohol intake: never Alcohol use details: 2 drinks/month Substance use: never Substance use type: does not use Gender identity (if verbalized by the patient): Female Spiritual care concerns: No Exam Narrative: GENERAL: Awake, alert, conversant, tearful HEAD: Normocephalic, atraumatic. EYES: PERRLA and EOMI. ENT: Nares clear, no rhinorrhea or epistaxis. Mucous membranes moist. NECK: Supple. CHEST: No respiratory distress, breathing even and non labored HEART: Regular rate, sinus rhythm ABDOMEN:Non distended, non tender EXTREMITIES: Normal range of motion. No edema. SKIN: Warm, dry, no rash. NEURO:No focal deficits. Alert and oriented x3 Course Vital Signs Vital signs: Vital Signs Temperature 37.1 C 05/19/22 13:43 Pulse Rate 83 05/19/22 13:43 Respiratory Rate 16 05/19/22 13:43 Blood Pressure 161/87 H 05/19/22 13:43 Pulse Oximetry 100 05/19/22 13:43 Oxygen Delivery Room Air 05/19/22 13:43 Temperature 37.1 C 05/19/22 13:43 Pulse Rate 78 05/19/22 16:58 Respiratory Rate 18 05/19/22 16:58 Blood Pressure 112/78 05/19/22 16:58 Pulse Oximetry 99 05/19/22 16:58 Oxygen Delivery Room Air 05/19/22 13:43 MDM - SOB/Dyspnea MDM Na
[2022-05-19 14:41] LABS: Band Neutrophils Percent 1 % (0-6); Eosinophils Absolute Manual 0.43 K/mm3 (0.02-0.5); Eosinophils Percent Manual 3 % (0-4); Lymphocytes Absolute Manual 1.88 K/mm3 (1.1-4.5); Monocytes Absolute Manual 0.14 K/mm3 (0.1-0.90); Monocytes Percent Manual 1 % (3-9); Neutrophils Absolute Manual 12.03 K/mm3 (1.7-7.2); Neutrophils Percent Manual 82 % (46-73); Total Cells Counted 100
[2022-05-19] MEDS: METOCLOPRAMIDE HCL INJ 10 MG/2 ML VIAL IV PUSH (15:43)
[2022-05-19] MEDS: SODIUM CHLORIDE 0.9% IV 1,000 ML 999 ML IV CONT (15:43)
[2022-05-19 15:50] VITALS: PULSE 78; RESP 18
[2022-05-19] MEDS: IPRATROPIUM BR 0.02% INH SOLN 0.5 MG/2.5 ML VIAL INHALATION (15:50)
[2022-05-19] MEDS: ALBUTEROL SULFATE NEB 2.5 MG/3 ML INH 5 MG INHALATION (15:50)
[2022-05-19 16:09] VITALS: PULSE 99; RESP 18
[2022-05-19 16:17] LABS: Creatine Kinase 184 U/L (30-135); Lipase 74 U/L (23-300)
[2022-05-19 16:30] LABS: NT Pro B Type Natriuretic Pept 41 pg/mL (5-100); Troponin I < 0.012 ng/mL (0.000-0.034)
[2022-05-19 16:58] VITALS: BP 112/78; PULSE 78; RESP 18; O2SAT 99
[2022-05-19 16:58] LABS: Appearance Urine Clear (Clear); Bilirubin Urine Negative (Negative); Blood Urine Negative (Negative); Color Urine Yellow (Yellow); Glucose Urine UA Negative (Negative); Ketones Urine Negative (Negative); Leukocyte Esterase Ur Negative LEU/UL (Negative); Nitrate Urine Negative (Negative); Protein Urine Negative (Negative); Specific Grav Ur 1.015 (1.001-1.035); pH Urine 7.5 (5.0-9.0)
[2022-05-19 17:08] LABS: Add Urine Microscopic? NO
== END 2022-05-19 17:49 | disposition home or self-care (01) ==
PROVIDERS: General Practice; Emergency Provider Emergency Medicine; PCP Family Medicine
DX: U07.1 COVID-19 (principal); J34.89 Other specified disorders of nose and nasal sinuses; M79.10 Myalgia, unspecified site; F41.9 Anxiety disorder, unspecified; F32.A Depression, unspecified; Z28.310 Unvaccinated for COVID-19; Z86.711 Personal history of pulmonary embolism; Z87.442 Personal history of urinary calculi; Z66 Do not resuscitate; Z79.01 Long term (current) use of anticoagulants
CPT/HCPCS: 36415; 71046; 71275; 80053; 81003; 82550; 83690; 83880; 84484; 85025; 93005; 94640; 96361; 96374; 99284; J2765; J7030; Q9967

== ENCOUNTER → 2023-09-13 09:16 | Outpatient (CLI) | payer OTHER, SELFPAY ==
--- NOTE | ~2023-09-13 | XR_ITS ---
EXAMINATION: XR abdomen/kub 1V INDICATION: Unspecified abdominal pain, history of kidney stones TECHNIQUE: Supine views of the abdomen were obtained on 2 radiographs. COMPARISON: CT, 05/13/2022 FINDINGS: Bowel contents project over the kidneys limiting sensitivity for renal stones. No definite urolithiasis is identified. Calcifications of the pelvis likely reflect phleboliths. The bowel gas pa ttern is normal. The visualized lung bases are clear. A moderate volume of colonic stool is present. IMPRESSION: 1. Moderate volume of colonic stool. Reviewed, dictated and finalized at location B. 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
== END ==
PROVIDERS: PCP Nurse Practitioner Family; Visit Provider Nurse Practitioner Family
DX: R10.9 Unspecified abdominal pain (principal); M54.50 Low back pain, unspecified
CPT/HCPCS: 74018

== ENCOUNTER 2024-01-01 22:30 | Emergency (ER) | payer OTHER, SELFPAY ==
[2024-01-01 22:35] VITALS: BP 119/71; PULSE 136; RESP 18; TEMP 37.5; O2SAT 94
[2024-01-01 23:19] LABS: Influenza A QL RT-PCR Positive (Negative); Influenza B QL RT-PCR Negative (Negative); RSV RNA, RT-PCR Negative (Negative); SARS-CoV-2 RNA PCR Negative (Negative)
[2024-01-01 23:25] VITALS: BP 131/83; PULSE 129; RESP 13; O2SAT 96; O2SAT 98
--- NOTE | 2024-01-01 23:52 | ED.GENADULT ---
HPI - General Adult General Chief complaint: Upper Respiratory Infection Stated complaint: cough, congestion, chills Time Seen by Provider: 01/01/24 23:31 Source: patient Mode of arrival: ambulatory Limitations: no limitations History of Present Illness HPI narrative: This is a 48-year-old female who presents to the ED with chief complaint of URI symptoms for the past 2 days. Reports cough, congestion, diffuse body aches. States it feels like she hit by truck. Endorses fevers. denies shortness of breath, chest pain, abdominal pain or vomiting. Related Data Home Medications Medication Instructions Recorded Confirmed black cohosh 540 mg capsule 20 mg PO DAILY 09/13/23 09/13/23 famotidine 40 mg tablet (Pepcid) 40 mg PO DAILY 09/13/23 09/13/23 oxycodone-acetaminophen 5 mg-325 1 tablet PO Q6H PRN 09/13/23 09/13/23 mg tablet (Percocet) paroxetine mesylate(menop.sym) 7.5 10 mg PO QHS 09/13/23 09/13/23 mg capsule tizanidine 2 mg tablet 2 mg PO QHS PRN muscle spasticity 09/13/23 09/13/23 Allergies Allergy/AdvReac Type Severity Reaction Status Date / Time Sulfa (Sulfonamide Allergy Intermediate Rash Verified 01/01/24 23:27 Antibiotics) hydromorphone [From Dilaudid] AdvReac Unknown Verified 01/01/24 23:27 Review of Systems Review of Systems: All systems as dictated in [facility] Past Medical History Medical History (Updated 01/02/24 @ 00:00 by Олег Balderas PA-C) Anxiety and depression BMI greater than 30 Kidney stone Migraine Screening for lipid disorders Surgical History Surgical History History of exploratory laparotomy Fallopian tube blood clot History of hysterectomy Hx of tonsillectomy Family History Family History Father Diabetes mellitus Alcohol abuse Liver cirrhosis Mother Heart disease Diabetes mellitus Kidney failure Hypertension Sarcoidosis Sibling Diabetes mellitus Hypertension Alcohol abuse Other Breast cancer Social History Social History Social History: Ms. Siddiqui lives at home with her . She works at [employer]. Her PCP is Dr. Bernard. She designates her , Marcin, as her surrogate decision maker. She would like to be a DNR. 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 Gender identity (if verbalized by the patient): Female Spiritual care concerns: No Exam Narrative: GENERAL: Well-appearing, well-nourished, and in no acute distress. HEAD: Normocephalic, atraumatic. EYES: PERRLA and EOMI. ENT: Nares clear, no rhinorrhea or epistaxis. Mucous membranes moist. Oropharynx without tonsillar hypertrophy exudate or other lesions. NECK: Supple. No adenopathy or masses. CHEST: No respiratory distress. Clear to auscultation. No wheezes rales or rhonchi HEART: Regular rate and rhythm. No murmur heard. Normal peripheral pulses. ABDOMEN: Soft, nontender, nondistended, normal active bowel sounds. MSK: Normal range of motion. No edema. SKIN: Warm, dry, no rash. NEURO: Alert and oriented x3. No focal deficits. PSYCH: Normal mood and affect. Course Vital Signs Vital signs: Vital Signs Temperature 99.5 F 01/01/24 22:35 Pulse Rate 136 H
[2024-01-02] MEDS: KETOROLAC 15 MG/ML VIAL (*BKC) IV PUSH (00:03)
[2024-01-02] MEDS: ONDANSETRON INJ 4 MG/2 ML VIAL IV PUSH (00:03)
[2024-01-02] MEDS: SODIUM CHLORIDE 0.9% IV 1,000 ML 999 ML IV CONT (00:03)
[2024-01-02 00:58] VITALS: BP 119/70; PULSE 114; RESP 21; O2SAT 98
[2024-01-02] MEDS: ACETAMINOPHEN 500 MG TABLET 1000 MG PO (01:08)
== END 2024-01-02 01:14 | disposition home or self-care (01) ==
PROVIDERS: Emergency Medicine; Emergency Provider Physician Assistant; PCP Nurse Practitioner Family
DX: J11.1 Influenza due to unidentified influenza virus with other respiratory manifestations (principal); Z20.822 Contact with and (suspected) exposure to COVID-19
CPT/HCPCS: 87637; 96361; 96374; 96375; 99284; A9270; J1885; J2405; J7030

== ENCOUNTER 2024-01-04 12:18 | Outpatient (CLI) | payer OTHER, SELFPAY ==
--- NOTE | ~2024-01-04 | CT_ITS ---
EXAMINATION: CT abdomen pelvis w con DATE: 01/04/2024 13:44 INDICATION: Unspecified abdominal pain TECHNIQUE: Computed tomography (CT) of the abdomen and pelvis was performed with 100 mL Omnipaque-350 intravenous contrast. Automated exposure control and iterative reconstruction technique were employe d. The dose-length product was 499.60 mGy-cm. COMPARISON: None FINDINGS: Lung bases are clear. Heart size is normal. No pericardial or pleural effusion. Focal hepatic steatos is at the ligamentum teres. Gallbladder, spleen, pancreas, bilateral adrenal glands and kidneys are n ormal. There are few scattered colonic diverticula without adjacent inflammatory stranding to suggest diverticulitis. Small bowel and appendix are normal. Bladder and bilateral adnexa are unremarkable. The uterus is not identified and has likely been surgically resected. No free intraperitoneal gas or fluid. No pathologically enlarged abdominal or pelvic lymphadenopathy. Bones are unremarkable. IMPRESSION: 1. No acute intra-abdominal/pelvic process. Reviewed, dictated and finalized at location L. DROPPER
[2024-01-04 14:50] LABS: Basophils Percent Auto 0.3 % (0.2-1.2); Eosinophils Percent Auto 0.1 % (0-4.4); Hematocrit 44.2 % (37.0-47.0); Hemoglobin 14.2 g/dL (12.0-15.0); Immature Granulocyte Absolute 0.01 K/mm3 (0.00-0.031); Immature Granulocyte Percent A 0.1 % (0-0.5); Lymphocytes Absolute Auto 3.56 K/mm3 (0.9-3.2); Mean Corpuscular HGB Conc 32.1 g/dl (32-36); Mean Corpuscular Hemoglobin 29.7 pg (26-34); Mean Corpuscular Volume 92.5 fl (80-100); Mean Platelet Volume 9.2 fl (7.4-10.4); Monocytes Absolute Auto 0.5 K/mm3 (0.1-0.6); Monocytes Percent Auto 6.9 % (2.6-8.5); Neutrophils Absolute Auto 2.8 K/mm3 (1.3-6.7); Neutrophils Percent Auto 40.6 % (45.5-73.1); Platelet Count Result 204 k/mm3 (150-375); Red Blood Count 4.78 M/mm3 (4.2-5.4); Red Cell Distribution Width 12.8 % (11.5-14.5); White Blood Count 6.8 K/mm3 (4.5-10.0)
[2024-01-04 15:01] LABS: Alanine Aminotransferase 22 U/L (6-35); Albumin Level 4.2 g/dL (3.5-5.1); Alkaline Phosphatase 76 U/L (38-126); Amylase 104 U/L (30-110); Anion Gap 6 mmol/L (8-16); Aspartate Amino Transferase 30 U/L (14-36); Bilirubin,Total 0.6 mg/dL (0.2-1.3); Blood Urea Nitrogen 15 mg/dL (7-17); Calcium 8.9 mg/dL (8.4-10.2); Carbon Dioxide 31 mmol/L (22-30); Chloride 100 mmol/L (98-107); Estimated Glomerular Filt Rate > 60; Glucose 86 mg/dL (65-110); Lipase 134 U/L (23-300); Potassium 3.4 mmol/L (3.4-5.0); Sodium 137 mmol/L (137-145)
== END 2024-01-04 12:19 | disposition home or self-care (01) ==
PROVIDERS: Physician Assistant; PCP Family Medicine; Visit Provider Family Medicine
DX: R10.9 Unspecified abdominal pain (principal); R19.7 Diarrhea, unspecified; R50.9 Fever, unspecified; J10.1 Influenza due to other identified influenza virus with other respiratory manifestations
CPT/HCPCS: 36415; 74177; 80053; 82150; 83690; 85025; Q9967

== ENCOUNTER 2024-08-06 10:58 | Outpatient (CLI) | payer OTHER, SELFPAY ==
--- NOTE | ~2024-08-06 | XR_ITS ---
Right wrist Technique: PA and lateral views were obtained. Clinical History: Pain Findings: No acute fracture or dislocation is seen. Osseous alignment is anatomic. Joint spaces are p reserved. Soft tissues are unremarkable. Impression: Unremarkable right wrist radiographs. Reviewed, dictated and finalized at location M. Impression: Unremarkable right wrist radiographs.
--- NOTE | ~2024-08-06 | XR_ITS ---
AP and oblique views of the SI joints CLINICAL HISTORY: Pain FINDINGS: No fracture or dislocation seen. SI joints are intact. Hip joints are intact. Soft tissues are unremarkable. IMPRESSION: Unremarkable exam. Reviewed, dictated and finalized at location M. IMPRESSION: Unremarkable exam.
--- NOTE | ~2024-08-06 | XR_ITS ---
Left ankle Technique: AP and lateral views were obtained. Clinical History: Pain Findings: No acute fracture or dislocation is seen. Osseous alignment is anatomic. Ankle mortise and other visualized joint spaces are preserved. Soft tissues are otherwise unremarkable. Impression: Unremarkable left ankle. Reviewed, dictated and finalized at location . Impression: Unremarkable left ankle.
--- NOTE | ~2024-08-06 | XR_ITS ---
Right Hand Technique: PA and lateral views were obtained. Clinical History: Pain Findings: No acute fracture or dislocation is seen. Osseous alignment is anatomic. Joint spaces are p reserved. Soft tissues are unremarkable. Impression: Unremarkable right hand. Reviewed, dictated and finalized at location M. Impression: Unremarkable right hand.
--- NOTE | ~2024-08-06 | XR_ITS ---
Right ankle Technique: AP and lateral views were obtained. Clinical History: Pain Findings: No acute fracture or dislocation is seen. Osseous alignment is anatomic. Ankle mortise and other visualized joint spaces are preserved. Soft tissues are otherwise unremarkable. Impression: Unremarkable right ankle. Reviewed, dictated and finalized at location . Impression: Unremarkable right ankle.
--- NOTE | ~2024-08-06 | XR_ITS ---
Left wrist Technique: PA and lateral views were obtained. Clinical History: Pain Findings: No acute fracture or dislocation is seen. Osseous alignment is anatomic. Joint spaces are p reserved. Soft tissues are unremarkable. Impression: Unremarkable left wrist radiographs. Reviewed, dictated and finalized at location M. Impression: Unremarkable left wrist radiographs.
--- NOTE | ~2024-08-06 | XR_ITS ---
Right foot Technique: AP and lateral views were obtained. Clinical History: Pain Findings: No acute fracture or dislocation is seen. Osseous alignment is anatomic. Joint spaces are p reserved without erosive or degenerative change. Soft tissues are unremarkable. Impression: Unremarkable right foot radiographs. Reviewed, dictated and finalized at location . Impression: Unremarkable right foot radiographs.
--- NOTE | ~2024-08-06 | XR_ITS ---
Left foot Technique: AP and lateral views were obtained. Clinical History: Pain Findings: No acute fracture or dislocation is seen. Osseous alignment is anatomic. Joint spaces are p reserved without erosive or degenerative change. Soft tissues are unremarkable. Impression: Unremarkable left foot radiographs. Reviewed, dictated and finalized at location . Impression: Unremarkable left foot radiographs.
--- NOTE | ~2024-08-06 | XR_ITS ---
Left Hand Technique: PA and lateral views were obtained. Clinical History: Pain Findings: No acute fracture or dislocation is seen. Osseous alignment is anatomic. Joint spaces are p reserved. Soft tissues are unremarkable. Impression: Unremarkable left hand. Reviewed, dictated and finalized at location M. Impression: Unremarkable left hand.
== END 2024-08-06 10:59 | disposition home or self-care (01) ==
PROVIDERS: PCP Family Medicine; Visit Provider Nurse Practitioner
DX: R53.81 Other malaise (principal)
CPT/HCPCS: 72202; 73100; 73120; 73600; 73620

== ENCOUNTER 2024-09-15 08:50 | Emergency (ER) | payer OTHER, SELFPAY ==
--- NOTE | ~2024-09-15 | XR_ITS ---
Portable chest x-ray Comparison: 05/19/2022 Clinical History: Cough, fever Findings: There is left lower lobe consolidation. Right lung clear. Cardiomediastinal silhouette is stable. Bones and soft tissues are unremarkable. Impression: Left lower lobe pneumonia. Reviewed, dictated and finalized at [facility]. BLOWER Impression: Left lower lobe pneumonia.
[2024-09-15 09:04] VITALS: BP 126/82; PULSE 104; RESP 16; TEMP 36.8; O2SAT 95
[2024-09-15 09:28] VITALS: O2SAT 100
[2024-09-15 10:03] LABS: Influenza A QL RT-PCR Negative (Negative); Influenza B QL RT-PCR Negative (Negative); RSV RNA, RT-PCR Negative (Negative); SARS-CoV-2 RNA PCR Negative (Negative)
[2024-09-15] MEDS: AZITHROMYCIN 250 MG TABLET 500 MG PO (10:22)
[2024-09-15] MEDS: AMOXICILLIN/CLAVULANATE K 875-125 MG TAB 1 TABLET PO (10:22)
--- NOTE | 2024-09-15 10:23 | ED_ITS ---
HPI - General Adult General Chief complaint: Upper Respiratory Infection Stated complaint: not feeling well X2 days Time Seen by Provider: 09/15/24 09:11 History of Present Illness HPI narrative: 49-year-old female presented to the emergency department for evaluation for worsening shortness of breath. States the symptoms began yesterday. Patient began developing increased body aches cough and fatigue. Patient does have associated headache. Patient does have cough and states that her headache worsens with cough. Patient has [id number] medications for pain control. Related Data Allergies Allergy/AdvReac Type Severity Reaction Status Date / Time Sulfa (Sulfonamide Allergy Intermediate Rash Verified 09/15/24 08:51 Antibiotics) hydromorphone [From Dilaudid] AdvReac Unknown Verified 09/15/24 08:51 Review of Systems Review of Systems: All systems reviewed & are unremarkable except as noted in HPI and below PMFSH Past Medical History Medical History Anxiety and depression BMI 38.0-38.9,adult BMI greater than 30 Kidney stone Migraine Screening for lipid disorders Surgical History Surgical History History of exploratory laparotomy Fallopian tube blood clot History of hysterectomy Hx of tonsillectomy Family History Family History Father Diabetes mellitus Alcohol abuse Liver cirrhosis Mother Heart disease Diabetes mellitus Kidney failure Hypertension Sarcoidosis Sibling Diabetes mellitus Hypertension Alcohol abuse Other Breast cancer Social History Social History Social History: Ms. Siddiqui lives at home with her . She works at [employer]. Her PCP is Dr. Bernard. She designates her , Marcin, as her surrogate decision maker. She would like to be a DNR. 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 Gender identity (if verbalized by the patient): Female Spiritual care concerns: No Exam Narrative: APPEARANCE: Ill-appearing HEAD: normocephalic, atraumatic. EYES: PERRLA/EOMI, conjunctivae clear. NOSE: Normal no drainage EARS:TMS clear with good light reflex. THROAT: Pharynx clear, no exudate. NECK: Supple. No adenopathy, no masses. RESPIRATORY: Airway patent, respirations nonlabored. Clear to auscultation bilaterally, no rales, rhonchi, wheezing. CARDIOVASCULAR: Regular rate and rhythm without murmurs rubs or gallops. ABDOMINAL: Soft, nontender, nondistended, normal bowel sounds MUSCULOSKELETAL: Moves all extremities. Strength/ROM intact, No edema, No calf tenderness. NEURO: Alert. Cranial nerves II through XII intact. Good gait. Good coordination SKIN: Warm, dry. Normal Color Course Vital Signs Vital signs: Vital Signs Temperature 98.3 F 09/15/24 09:04 Pulse Rate 104 H 09/15/24 09:04 Respiratory Rate 16 09/15/24 09:04 Blood Pressure 126/82 09/15/24 09:04 Pulse Oximetry 95 09/15/24 09:04 Oxygen Delivery Room Air 09/15/24 09:04 Temperature 98.3 F 09/15/24 09:04 Pulse Rate 104 H 09/15/24 09:04 Respiratory Rate 16 09/15/24 09:04 Blood Pressure 126/82 09/15/24 09:04 Pulse Oximetry 100 09/15/24 09:28 Oxygen Delivery Room Air 09/15/24 09:28 Medical Decision Making [facility] Narrative Medical decision making narrative: 49-year-old female presenting to the emergency department for evaluation for headache and body aches. Patient was negative for influenza RSV and for COVID. Chest x-ray was concerning for left lower lobe pneumonia. Patient was started on Augmentin and azithromycin. Patient was provided medications for fever control and body aches in the emergency department. Patient and family are updated on the results of the workup. All questions concerns were addressed. Differential Diagnosis Differential Diagnosis: COVID, RSV, influenza, pneumonia Vital Signs Vital Signs: Vital Signs Temperature 98.3 F 09/15/24 09:04 Pulse Rate 104 H 09/15/24 09:04 Respiratory Rate 16 09/15/24 09:04 Blood Pressure 126/82 09/15/24 09:04 Pulse Oximetry 95 09/15/24 09:04 Oxygen Delivery Room Air 09/15/24 09:04 Temperature 98.3 F 09/15/24 09:04 Pulse Rate 104 H 09/15/24 09:04 Respiratory Rate 16 09/15/24 09:04 Blood Pressure 126/82 09/15/24 09:04 Pulse Oximetry 100 09/15/24 09:28 Oxygen Delivery Room Air 09/15/24 09:28 Lab Data Lab results reviewed: Yes I reviewed the patient's lab results. Labs: Lab Results 09/15/24 Range/Units 09:18 Influenza A (RT-PCR) Negative (Negative) Influenza B (RT-PCR) Negative (Negative) RSV (RT-PCR) Negative (Negative) SARS-CoV-2 RNA (RT-PCR) Negative (Negative) Imaging Data Radiologist's impression: Impressions Chest X-Ray 09/15/24 09:45 Impression: Left lower lobe pneumonia. Discharge Plan Discharge Clinical Impression: LLL pneumonia Patient Disposition: Home, Self-Care Condition: Stable Instructions: Antibiotic Form, Pneumonia (ED) Additional Instructions: Antibiotic as directed until completed. Albuterol inhaler for shortness breath. Tessalon Perles for cough. Tylenol and ibuprofen for body aches fatigue and headache. Have close follow-up with her primary care physician. Prescriptions: New amoxicillin-pot clavulanate 875-125 mg tablet 1 tablet PO Q12H 7 Days Qty: 14 0RF azithromycin 250 mg tablet See Rx Instructions .ROUTE .COMPLEX Qty: 6 0RF Rx Instructions: For 250 mg dose pack: take 500 mg today (day 1), then 250 mg for 4 days (days 2-5) albuterol sulfate 90 mcg/actuation HFA aerosol inhaler 1 inh inhalation QID PRN (Reason: shortness of breath or wheezing) Qty: 6.7 0RF benzonatate 100 mg capsule 100 mg PO TID PRN (Reason: cough) Qty: 14 0RF No Action triamcinolone acetonide 0.1 % cream 1 applic topical TID Qty: 30 0RF silver sulfadiazine [Silvadene] 1 % cream 1 applic topical DAILY Qty: 50 0RF Rx Instructions: apply a 1.5 mm thickness ondansetron HCl 4 mg tablet 4 mg PO Q6H PRN (Reason: nausea and vomiting) Qty: 30 0RF alprazolam [Xanax] 0.5 mg tablet 0.5 mg PO BID PRN (Reason: anxiety) Qty: 30 0RF sertraline [Zoloft] 25 mg tablet 25 mg PO DAILY Qty: 90 0RF Follow-up/Referrals: Abdullahi Bernard MD [Primary Care Provider] -
[2024-09-15] MEDS: KETOROLAC 30 MG/ML VIAL (*BKC) IM (10:47)
[2024-09-15] MEDS: ACETAMINOPHEN 500 MG TABLET 1000 MG PO (10:48)
== END 2024-09-15 11:06 | disposition home or self-care (01) ==
PROVIDERS: Emergency Provider Emergency Medicine; PCP Family Medicine
DX: J18.9 Pneumonia, unspecified organism (principal); Z20.822 Contact with and (suspected) exposure to COVID-19; Z87.442 Personal history of urinary calculi; Z90.710 Acquired absence of both cervix and uterus; Z77.22 Contact with and (suspected) exposure to environmental tobacco smoke (acute) (chronic)
CPT/HCPCS: 71045; 87637; 96372; 99283; A9270; J1885

== ENCOUNTER 2024-10-14 16:29 | Outpatient (CLI) | payer OTHER, SELFPAY ==
--- NOTE | ~2024-10-14 | XR_ITS ---
Clinical Indication: Follow-up pneumonia PA and lateral views of the chest: Comparison: 09/15/2024 Findings: Probable linear residual scarring at the left lung base. Lungs are otherwise clear. Cardio mediastinal silhouette is within normal limits. Bones and soft tissues are unremarkable. Impression: Probable residual linear scarring left lung base, otherwise clear lungs. Reviewed, dictated and finalized at location . 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
--- NOTE | ~2024-10-14 | US_ITS ---
EXAMINATION: US thyroid DATE: 10/14/2024 17:07 INDICATION: Autoimmune thyroiditis TECHNIQUE: Multiple ultrasound images of the thyroid were obtained. COMPARISON: None. FINDINGS: The right thyroid lobe measures 4.7 x 1.5 x 1.6 cm. The left thyroid lobe measures 4.3 x 1.1 x 1.5 c m. And 1.6 cm solid isoechoic wider than tall nodule with smooth margins and without echogenic foci in the right thyroid lobe (TI-RADS 3, mildly suspicious , FNA if >=2.5 cm, annual followup is >=1.5 c m). There is coarsened echotexture with mild increased vascular flow on color Doppler throughout the remainder of the thyroid consistent with provided history of autoimmune thyroiditis. IMPRESSION: 1. Heterogeneous thyroid with coarsened echotexture and increased vascular flow on color Doppler cons istent with provided history of thyroiditis. 2. 1.6 cm TI-RADS 3 right thyroid nodule for which annual ultrasound follow-up would be recommended. Reviewed, dictated and finalized at location A. DISCHARGE IMPRESSION: 1. Heterogeneous thyroid with coarsened echotexture and increased vascular flow on color Doppler consistent with provided history of thyroiditis. 2. 1.6 cm TI-RADS 3 right thyroid nodule for which annual ultrasound follow-up would be recommended.
== END 2024-10-14 16:30 | disposition home or self-care (01) ==
PROVIDERS: PCP Family Medicine
DX: E06.3 Autoimmune thyroiditis (principal); J18.9 Pneumonia, unspecified organism
CPT/HCPCS: 71046; 76536

== ENCOUNTER 2025-10-17 15:22 | Outpatient (CLI) | payer OTHER, SELFPAY ==
--- NOTE | ~2025-10-17 | US_ITS ---
EXAMINATION: US thyroid DATE: 10/17/2025 16:07 INDICATION: Nodules TECHNIQUE: Multiple ultrasound images of the thyroid were obtained. COMPARISON: October 14, 2024 FINDINGS: The right thyroid lobe measures 4.5 x 1.4 x 1.6 cm. The left thyroid lobe measures 4.4 x 1.4 x 1.3 cm. Isthmus: 2.9 mm Right lobe nodule present measures 1.7 x 1.2 x 1.3 cm compared to 1.6 x 1.2 x 1.1 cm on the previous exam. The nodule is sonographically categorized as a TR 3. IMPRESSION: Stable to minimally increased size of TR3 1.7 cm right lobe nodule. Continued surveillance recommended with follow-up thyroid ultrasound in 12 months, on or about October 172025. Reviewed, dictated and finalized at location [facility]. 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 Continued surveillance recommended with follow-up thyroid ultrasound in 12 mon ths, on or about October 172025.
== END 2025-10-17 15:23 | disposition home or self-care (01) ==
PROVIDERS: PCP Family Medicine; Visit Provider Nurse Practitioner Family
DX: E06.3 Autoimmune thyroiditis (principal)
CPT/HCPCS: 76536